=== PATIENT | male | born 1955 | race Hispanic/Latino ===

== ENCOUNTER → 2024-05-15 | Outpatient (REF) | payer MEDICARE ==
[~2024-05-15] MED LIST: CRESTOR10 MG PO; GLIPIZIDE5 MG PO; ZEMPEP PO
== END ==
LOC: US 08:40
PROVIDERS: ATTEND Nurse Practitioner
DX: K29.70 Gastritis, unspecified, without bleeding (principal); K76.0 Fatty (change of) liver, not elsewhere classified; N20.0 Calculus of kidney
CPT/HCPCS: 76700